=== PATIENT | female | born 1955 | race African-American/Black ===

== ENCOUNTER 2017-08-23 09:58 | Emergency (ER) | payer SELFPAY ==
[~2017-08-23 09:58] MED LIST: CLON.1 PO; METH750T2 PO; TRAM50 PO
[2017-08-23 10:10] VITALS: BP 223/107; PULSE 76; RESP 16; TEMP 98.3; O2SAT 98
[2017-08-23 10:40] LABS: AUTOMATED NEUTROPHIL # 3.8 TH/MM3 (1.8-7.7); BASOPHIL % 0.4 % (0.0-2.0); EOSINOPHIL # 0.1 TH/MM3 (0-0.4); EOSINOPHIL % 2.1 % (0.0-4.0); HEMATOCRIT 41.5 % (35.0-46.0); HEMOGLOBIN 13.6 GM/DL (11.6-15.3); LYMPH % 23.8 % (9.0-44.0); LYMPHOCYTE # 1.4 TH/MM3 (1.0-4.8); MEAN CELL VOLUME 91.4 FL (80.0-100.0); MEAN CORPUSCULAR HGB CONC 32.8 % (32.0-36.0); MEAN PLATELET VOLUME 7.4 FL (7.0-11.0); MONO % 11.2 % (0.0-8.0); MONOCYTE # 0.7 TH/MM3 (0-0.9); NEUT % 62.5 % (16.0-70.0); PLATELET COUNT 239 TH/MM3 (150-450); RED BLOOD COUNT 4.54 MIL/MM3 (4.00-5.30); RED CELL DISTRIBUTION WIDTH 13.8 % (11.6-17.2); WHITE BLOOD COUNT 6.1 TH/MM3 (4.0-11.0)
[2017-08-23 10:56] LABS: BICARBONATE 28.2 MEQ/L (21.0-32.0); CALCIUM 9.2 MG/DL (8.5-10.1); CREATININE 0.73 MG/DL (0.50-1.00)
--- NOTE | 2017-08-23 12:34 | PD ---
HPI Chief Complaint: Skin Problem Time Seen by Provider: 12:32 Travel History International Travel<30 days: No Contact w/Intl Traveler<30days: No Traveled to known affect area: No History of Present Illness HPI 62-year-old female presents to the emergency department with complaint of wounds and scalp dryness to her scalp for the past 2 weeks. The symptoms have been present for the past couple months with worsening over the past 2 months. She has had something like this before many years ago and was treated with antibiotics and told she had MRSA. Does not know if she has had a fever. Denies chills. Denies vomiting. Says her scalp is itchy and bryant. Says it feels tight. It is also painful. Denies new exposures to shampoos, lotions, soaps, detergents, medications, foods, environmental exposures. Symptoms are mild in severity. Has tried washing her hair with shampoo and applying oils for symptom management. No known aggravating or relieving factors. Patient's blood pressure is also elevated in the ER. She denies history of hypertension and does not take medications. Reports her blood pressure becomes elevated when she has a headache, becomes stressed out, or is in pain. She is asymptomatic at this time. She denies chest pain, shortness of breath, abdominal pain, vomiting, headache, change in vision, dizziness, feeling faint. She has no primary care provider. No known allergies. Denies significant past medical history. Has no other medical complaints. No other modifying factors or associated signs and symptoms. PFSH Past Medical History Cardiovascular Problems: Yes Immunizations Current: Yes Menopausal: Yes : 2 Para: 2 Social History Alcohol Use: Yes (ocass) Tobacco Use: No Substance Use: No Allergies-Medications (Allergen,Severity, Reaction): Coded Allergies: No Known Allergies (Verified , 12/29/15) Reported Meds & Prescriptions Reported Meds & Active Scripts Active Amlodipine (Amlodipine Besylate) 5 Mg Tab 10 Mg PO DAILY Bactrim DS (Sulfamethoxazole-Trimethoprim) 800-160 Mg Tab 1 Tab PO BID 10 Days Methocarbamol 750 Mg Tab 750 Mg PO QID PRN Ultram (Tramadol HCl) 50 Mg Tab 50 Mg PO Q6H PRN FOR PAIN Catapres 0.1 mg (Clonidine HCl) 0.1 Mg Tab 1 Tab PO Q12HR PRN Review of Systems Except as stated in HPI: all other systems reviewed are Neg Physical Exam Narrative GENERAL: Well-nourished, well-developed black female patient, in no acute distress; afebrile, nontoxic-appearing SKIN: Warm and dry. Scalp is dry and flaky. The crease behind the left ear is dry with notable rash and minimal drainage coming from excoriated area. The left ear is mildly edematous with erythema and warmth to touch, HEAD: Atraumatic. Normocephalic. EYES: Pupils equal and round. No scleral icterus. No injection or drainage. ENT: Mucosa pink and moist. Airway patent. NECK: Trachea midline. CARDIOVASCULAR: Regular rate and rhythm. No murmur appreciated. RESPIRATORY: No accessory muscle use. Breath sounds clear and equal bilaterally. GASTROINTESTINAL: Abdomen soft, non-tender, nondistended. Positive bowel sounds. No hepato-splenomegaly, or palpable masses. No guarding. MUSCULOSKELETAL: No obvious deformities. No clubbing. No cyanosis. No edema. NEUROLOGICAL: Awake and alert. Oriented 3. No obvious cranial nerve deficits. Motor grossly within normal limits. Normal speech. PSYCHIATRIC: Appropriate mood and affect; insight and judgment normal. Data Data Last Documented VS Vital Signs Date Time Temp Pulse Resp B/P (MAP) Pulse Ox O2 Delivery O2 Flow Rate FiO2 08/23/17 15:15 08/23/17 14:17 60 20 Room Air 08/23/17 13:37 98 08/23/17 10:10 98.3 Orders Orders Complete Blood Count With Diff (08/23/17 10:14) Basic Metabolic Panel (Bmp) (08/23/17 10:14) Ketorolac Inj (Toradol Inj) (08/23/17 13:15) Clonidine (Catapres) (08/23/17 13:15) Nifedipine (Procardia) (08/23/17 14:30) Labs Laboratory Tests Test 08/23/17 10:19 White Blood Count 6.1 TH/MM3 Red Blood Count 4.54 MIL/MM3 Hemoglobin 13.6 GM/DL Hematocrit 41.5 % Mean Corpuscular Volume 91.4 FL Mean Corpuscular Hemoglobin 30.0 PG Mean Corpuscular Hemoglobin Concent 32.8 % Red Cell Distribution Width 13.8 % Platelet Count 239 TH/MM3 Mean Platelet Volume 7.4 FL Neutrophils (%) (Auto) 62.5 % Lymphocytes (%) (Auto) 23.8 % Monocytes (%) (Auto) 11.2 % Eosinophils (%) (Auto) 2.1 % Basophils (%) (Auto) 0.4 % Neutrophils # (Auto) 3.8 TH/MM3 Lymphocytes # (Auto) 1.4 TH/MM3 Monocytes # (Auto) 0.7 TH/MM3 Eosinophils # (Auto) 0.1 TH/MM3 Basophils # (Auto) 0.0 TH/MM3 CBC Comment DIFF FINAL Differential Comment Blood Urea Nitrogen 12 MG/DL Creatinine 0.73 MG/DL Random Glucose 111 MG/DL Calcium Level 9.2 MG/DL Sodium Level 140 MEQ/L Potassium Level 4.4 MEQ/L Chloride Level 106 MEQ/L Carbon Dioxide Level 28.2 MEQ/L Anion Gap 6 MEQ/L Estimat Glomerular Filtration Rate 97 ML/MIN MDM Medical Decision Making Medical Screen Exam Complete: Yes Emergency Medical Condition: Yes Medical Record Reviewed: Yes Differential Diagnosis Tinea capitis, cellulitis, nonspecific rash, high blood pressure Narrative Course 62-year-old female with significantly dry scalp and unspecified rash to the base of her neck and behind her left ear. Seems to be consistent with tinea capitis. The left ear is edematous, erythematous and with warmth to touch; minimal amount of drainage noted coming from rash. Patient is afebrile nontoxic pain. She denies fever, vomiting. Patient's blood pressure is elevated in the ER. I discussed the patient with Dr. samuel and he recommended clonidine 0.2 mg for her elevated blood pressure. Clonidine ordered. 1425: Blood pressure continues to be high after administration of clonidine. Dr. Samuel recommended Procardia 20 mg p.o. The RN retook the patient's blood pressure prior to Procardia administration and blood pressure is 150/69. Procardia was not administered. Amlodipine prescribed for home. Discussed following up with primary care provider in regards to elevated blood pressure. Discussed signs and symptoms of elevated blood pressure need to return to the emergency department. Patient verbalized understanding and agreement. Instructed patient to follow-up with box toe cutter. I did offer to prescribe the patient griseofulvin and she declined. Says she has been prescribed it in the past and it did not do anything for her. She said antibiotics work for her. Bactrim and amlodipine prescribed for home. Instructed patient to follow up with primary care provider. Patient verbalizes understanding and agreement with treatment plan. Patient is medically cleared and stable for discharge. Discussed reasons to return to the emergency department. Patient agrees with treatment plan. The patients vital signs are stable and the patient is stable for outpatient follow-up and treatment. Patient discharged home, stable and in no acute distress. Diagnosis Primary Impression: Cellulitis of left ear Additional Impressions: Rash and nonspecific skin eruption High blood pressure Qualified Codes: I10 - Essential (primary) hypertension Referrals: [facility] Primary Care Physician Patient Instructions: Cellulitis (ED), General Instructions, Hypertension (ED) , Tinea Capitis (ED) Additional Instructions: Antibiotics as prescribed Shampoo your hair regularly Good hand hygiene to prevent spread of infection Do not share personal items such as clothing, towels, hairbrushes, or other personal items Follow-up with dermatology Follow-up with primary care provider Return to the emergency department immediately for worsening of symptoms Take blood pressure medications as prescribed Take your blood pressure regularly and log it in a diary and take it to your next primary care provider appointment Follow-up with your primary care provider Return to the emergency department immediately Med/Other Pt SpecificInfo: Prescription(s) given Scripts Amlodipine (Amlodipine) 5 Mg Tab 10 MG PO DAILY for Blood Pressure Management, #30 TAB 0 Refills Prov: Danay Clarke 08/23/17 Sulfamethoxazole-Trimethoprim (Bactrim DS) 800-160 Mg Tab 1 TAB PO BID for Infection for 10 Days, #20 TAB 0 Refills Prov: Danay Clarke 08/23/17 Disposition: 01 DISCHARGE HOME Condition: Stable Danay Clarke Aug 23, 2017 12:34
[2017-08-23] MEDS ORDERED: cloNIDine HCL 0.2 MG TAB PO ONE (13:15)
[2017-08-23] MEDS ORDERED: KETOROLAC TROMETHAMINE 60 MG/2 ML (IM) VIAL IM ONE (13:15)
[2017-08-23 13:37] VITALS: BP 237/109; PULSE 60; RESP 17; O2SAT 98
[2017-08-23] MEDS ORDERED: BACT800T5 PO (14:15)
[2017-08-23 14:17] VITALS: BP 238/103; PULSE 60; RESP 20
[2017-08-23] MEDS ORDERED: AMLO5TAB2 PO ×2 (14:18→14:26)
[2017-08-23] MEDS ORDERED: NIFEdipine 20 MG CAP PO ONE (14:30)
[2017-08-23 15:02] VITALS: BP 150/69
== END 2017-08-23 15:16 | disposition home or self-care (01) ==
LOC: NEPD 09:58
DX: H60.12 Cellulitis of left external ear (principal); R21 Rash and other nonspecific skin eruption; I10 Essential (primary) hypertension
CPT/HCPCS: 80048; 85025; 96372; 99283; J1885

== ENCOUNTER 2017-08-26 21:18 | Emergency (ER) | payer SELFPAY ==
[~2017-08-26] VITALS: Ht 172.7 cm; Wt 89.0 kg
[~2017-08-26 21:18] MED LIST changes: +AMLO5TAB2 PO; +BACT800T5 PO
[2017-08-26 22:45] VITALS: BP 221/105; PULSE 73; RESP 16; TEMP 98.1; O2SAT 100
[2017-08-26 23:04] VITALS: BP 243/104; PULSE 65; RESP 18; O2SAT 100
[2017-08-26] MEDS ORDERED: cloNIDine HCL 0.1 MG TAB PO ONE (23:15)
[2017-08-26] MEDS ORDERED: amLODIPine BESYLATE 5 MG TAB PO ONE (23:15)
[2017-08-27] VITALS: BP 189/91; PULSE 66; RESP 18; O2SAT 99
[2017-08-27 00:52] VITALS: BP 181/87; PULSE 92; RESP 16; O2SAT 100
[2017-08-27] MEDS ORDERED: CLON0.1T PO (01:03)
--- NOTE | 2017-08-27 01:04 | PD ---
HPI Chief Complaint: Hypertension Time Seen by Provider: 22:59 Travel History International Travel<30 days: No Contact w/Intl Traveler<30days: No Traveled to known affect area: No History of Present Illness HPI Patient is a 62-year-old female was here in our ER 3 days ago hypertension diagnosed given amlodipine 10 mg p.o. she got the prescription filled yesterday took 1 dose yesterday and one dose this morning comes in similar symptoms headache high pressure to systolic 239 at triage. Norvasc prescription that she has already filled at home , she had been sent home with bactrim and Amlodipine 10 mg , still having symptoms not alleviated by norvasc home. PFSH Past Medical History Cardiovascular Problems: Yes (HTN) Diminished Hearing: No Hypertension: Yes Immunizations Current: Yes Menopausal: Yes : 2 Para: 2 Past Surgical History Surgical History: No Previous Surgery Social History Alcohol Use: Yes Tobacco Use: No Substance Use: No Allergies-Medications (Allergen,Severity, Reaction): Coded Allergies: No Known Allergies (Verified , 12/29/15) Reported Meds & Prescriptions Reported Meds & Active Scripts Active Clonidine (Clonidine HCl) 0.1 Mg Tab 0.1 Mg PO BID Amlodipine (Amlodipine Besylate) 5 Mg Tab 10 Mg PO DAILY Bactrim DS (Sulfamethoxazole-Trimethoprim) 800-160 Mg Tab 1 Tab PO BID 10 Days Review of Systems Except as stated in HPI: all other systems reviewed are Neg HENT: Positive: Headaches (htn) Physical Exam Narrative GENERAL: in no apparent distress Systolic BP 239 SKIN: Warm and dry. HEAD: Atraumatic. Normocephalic. reports headache EYES: Pupils equal and round. No scleral icterus. No injection or drainage. ENT: No nasal bleeding or discharge. Mucous membranes pink and moist. NECK: Trachea midline. No JVD. CARDIOVASCULAR: Regular rate and rhythm. hypertensive RESPIRATORY: No accessory muscle use. Clear to auscultation. Breath sounds equal bilaterally. GASTROINTESTINAL: Abdomen soft, non-tender, nondistended. Hepatic and splenic margins not palpable. MUSCULOSKELETAL: Extremities without clubbing, cyanosis, or edema. No obvious deformities. NEUROLOGICAL: Awake and alert. No obvious cranial nerve deficits. Motor grossly within normal limits. Five out of 5 muscle strength in the arms and legs. Normal speech. PSYCHIATRIC: Appropriate mood and affect; insight and judgment normal. Data Data Last Documented VS Vital Signs Date Time Temp Pulse Resp B/P (MAP) Pulse Ox O2 Delivery O2 Flow Rate FiO2 08/27/17 01:37 08/27/17 00:52 92 16 100 Room Air 08/26/17 22:45 98.1 Orders Orders Amlodipine (Norvasc) (08/26/17 23:15) Clonidine (Catapres) (08/26/17 23:15) Ed Discharge Order (08/27/17 01:06) MDM Medical Decision Making Medical Screen Exam Complete: Yes Emergency Medical Condition: Yes Differential Diagnosis pt has return of BP . ddx essentail HTN or med non complaince BP elevation or salt over indulgence on fluid overload or renal failure Narrative Course In the ER patient is given clonidine added to her amlodipine here in the ER and she feels much better pressure comes down to 179 systolic and she would like to go home I do not feel is necessary to work her up further giving her clonidine 0.1 mg BID PRN she has home BP cuff to check , SHe is instructed she must follow up with her PCP within 2 days for BP check and med re-eval Diagnosis Primary Impression: HTN (hypertension) Qualified Codes: I10 - Essential (primary) hypertension Patient Instructions: Chronic Hypertension (ED), General Instructions Scripts Clonidine (Clonidine) 0.1 Mg Tab 0.1 MG PO BID for Blood Pressure Management, #40 TAB 0 Refills Prov: Francisco Caldwell MD 08/27/17 Disposition: 01 DISCHARGE HOME Condition: Good Francisco Caldwell MD Aug 27, 2017 01:04
== END 2017-08-27 01:44 | disposition home or self-care (01) ==
LOC: NEPE 21:18
DX: I10 Essential (primary) hypertension (principal)
CPT/HCPCS: 99283